=== PATIENT | female | born 1985 | race African-American/Black ===

== ENCOUNTER 2019-01-23 07:23 | Emergency (ER) | payer MEDICAID, OTHER ==
[~2019-01-23] VITALS: Ht 157.5 cm; Wt 87.2 kg
[2019-01-23 07:32] VITALS: BP 113/79
== END 2019-01-23 10:27 | disposition home or self-care (01) ==
LOC: ER 07:23
DX: J02.9 Acute pharyngitis, unspecified (principal); F17.210 Nicotine dependence, cigarettes, uncomplicated; Z88.6 Allergy status to analgesic agent
CPT/HCPCS: 81025

== ENCOUNTER 2019-06-28 22:00 | Inpatient (IN) | payer MEDICAID ==
[~2019-06-28] VITALS: Ht 157.5 cm; Wt 86.1 kg
[2019-06-28 22:53] LABS: Basophils # (auto) 0 uL; Eosinophils # (auto) 0 uL; Lymphocytes # (auto) 0.3 uL; Mean Corpuscular Hemoglobin 24.8 pg (28.0-32.0); Monocytes # (auto) 0.5 uL; White Blood Cell 2.8 10^3/uL (4.4-10.8)
[2019-06-28 22:55] LABS: Basophils % (auto) 0.4 % (0.0-2.0); Eosinophils % (auto) 0.8 % (0.0-7.0); Hematocrit 20.9 % (36.0-46.0); Lymphocytes % (auto) 9.6 % (10.0-50.0); Mean Corpuscular Hgb Conc. 31.8 g/dL (32.0-36.0); Neutrophils % (auto) 72.2 % (37.0-80.0); Platelet Count (auto) 113 10^3/uL (140-450); Red Blood Cells 2.68 10^6/uL (4.0-5.20)
[2019-06-28 23:05] LABS: Hemoglobin 6.6 g/dL (12.2-16.2)
[2019-06-28 23:06] LABS: INR 0.96 (0.9-1.15); Partial Thromboplastin Time 28.7 sec (23.64-32.05)
[2019-06-28 23:13] LABS: Albumin 2.7 g/dL (3.4-5.0); Calcium 7.6 mg/dL (8.5-10.1)
[2019-06-28 23:18] LABS: Urine Bacteria NONE SEEN /hpf (None Seen); Urine Blood Negative /uL (Negative); Urine Specific Gravity 1.002 (1.001-1.035); Urine WBC 1 /hpf (0 - 5)
[2019-06-28 23:18] LABS: Bilirubin, Total 0.7 mg/dL (0.2-1.0)
[2019-06-28 23:19] LABS: Potassium 2.9 mmol/L (3.5-5.1)
[2019-06-28 23:40] LABS: BUN/Creatinine Ratio 3.1
[2019-06-28] MEDS ORDERED: MORPHINE SULFATE 4 MG/ML SYR/VIAL IV ONE (23:45)
[2019-06-28] MEDS ORDERED: ONDANSETRON HCL 4 MG/2 ML VIAL IV ONE (23:45)
[2019-06-29] VITALS (15 sets, daily range): BP systolic 98–114; BP diastolic 53–75
[2019-06-29] MEDS ORDERED: POTASSIUM CHL 20MEQ/100ML 100 ML IV ONE (00:45)
[2019-06-29] MEDS ORDERED: ALBUMIN 5% 250 ML IV ONE (05:00)
[2019-06-29] MEDS ORDERED: ACETAMINOPHEN 500 MG TAB PO PRN (05:30)
[2019-06-29 06:31] LABS: Hematocrit 20.3 % (36.0-46.0); Mean Corpuscular Hemoglobin 24.7 pg (28.0-32.0)
[2019-06-29] MEDS: traMADol HCL 50 MG TAB PO PRN ×2 (06:32→23:08)
[2019-06-29 06:37] LABS: Mean Corpuscular Hgb Conc. 31.6 g/dL (32.0-36.0); Mean Corpuscular Volume 78.1 fL (80.0-100.0); Platelet Count (auto) 97 10^3/uL (140-450)
[2019-06-29 06:50] LABS: BUN/Creatinine Ratio 3.3; Calcium 7.1 mg/dL (8.5-10.1); Potassium 3.6 mmol/L (3.5-5.1)
[2019-06-29 06:51] LABS: % Iron Saturation 12.5 % (15-50)
[2019-06-29 06:57] LABS: Red Cell Distribution Width 20.8 % (11.8-14.3)
[2019-06-29 07:06] LABS: White Blood Cell 1.9 10^3/uL (4.4-10.8)
[2019-06-29 07:07] LABS: Hemoglobin 6.4 g/dL (12.2-16.2)
[2019-06-29 07:08] LABS: Basophils % (manual) 0 (0.0-2.0); Blast Cells 0; Eosinophils % (manual) 0 (0-7); Metamyelocytes % 0; Myelocytes % 0; Promyelocytes % 0; Reactive Lymphocytes 0
[2019-06-29 08:17] LABS: Band Neutrophils % (manual) 1; Lymphocytes % (manual) 11 (10.0-50.0)
[2019-06-29 08:18] LABS: Monocytes % (manual) 13 (0-12)
--- NOTE | 2019-06-29 10:11 | NUR ---
RECEIVED PATIENT ON THE FLOOR. PATIENT BLOOD TRANSFUSION JUST FINISHED. VS CHARTED AND WNL. PATIENT SHOWS NO S/S OF DISTRESS,SOB, OR PAIN. PATIENT IS ON ROOM AIR [id number] PATIENT IS ALERT AND ORIENTED. ORIENTED PATIENT TO ROOM, UNIT,POLICIES, AND PROCEDURES. ALL QUESTIONS AND CONCERNS ADDRESSED. BED IS IN LOWEST POSITION, SIDE RAILS UPX2, AND CALL LIGHT WITHIN REACH. WILL CONTINUE TO MONITOR Q1 HOUR AND PRN.
[2019-06-29] MEDS: MORPHINE SULFATE 4 MG/ML SYR/VIAL IV PRN ×2 (11:16→19:57)
[2019-06-29] MEDS: D5W/SOD CHLO 0.9% 1,000 ML IV SCH ×2 (11:16→19:05)
[2019-06-29] MEDS: FAMOTIDINE 20 MG TAB PO SCH (11:16)
[2019-06-29] MEDS: FOLIC ACID 1 MG TAB PO SCH (11:17)
[2019-06-29] MEDS: HYDROXYUREA 500 MG CAP PO SCH (11:17)
[2019-06-29] MEDS: ONDANSETRON HCL 4 MG/2 ML VIAL IV PRN (11:17)
--- NOTE | 2019-06-30 00:30 | NUR ---
PT TRANSFERRED TO ROOM 280 A BECAUSE SHE STATES HER ROOMMATE IS YELLING TOO MUCH,AND SHE CANT TAKE BEING IN THE SAME ROOM WITH HER ANYMORE.PT HAD BEEN WEARING EARPLUGS BECAUSE SHE STATES THE YELLING HAD GONE ON "ALL DAY". PT IS NOW HAPPY AND STATES SHE WILL FINALLY BE ABLE TO SLEEP.
[2019-06-30] MEDS: MORPHINE SULFATE 4 MG/ML SYR/VIAL IV PRN ×2 (01:02→05:27)
[2019-06-30 05:28] VITALS: BP 109/66
[2019-06-30 05:34] LABS: Basophils # (auto) 0 uL; Eosinophils # (auto) 0 uL; Lymphocytes # (auto) 0.2 uL; Monocytes # (auto) 0.2 uL
[2019-06-30 05:38] LABS: Basophils % (auto) 1.2 % (0.0-2.0); Eosinophils % (auto) 2.9 % (0.0-7.0); Hematocrit 29.6 % (36.0-46.0); Hemoglobin 9.5 g/dL (12.2-16.2); Lymphocytes % (auto) 11.2 % (10.0-50.0); Mean Corpuscular Hemoglobin 26.5 pg (28.0-32.0); Mean Corpuscular Hgb Conc. 32.2 g/dL (32.0-36.0); Mean Corpuscular Volume 82.2 fL (80.0-100.0); Neutrophils # (auto) 1.1 uL; Neutrophils % (auto) 70.7 % (37.0-80.0); Nucleated Red Blood Cells % 1.8 %; Platelet Count (auto) 86 10^3/uL (140-450)
[2019-06-30 05:59] LABS: Calcium 7.7 mg/dL (8.5-10.1); Potassium 3.7 mmol/L (3.5-5.1)
[2019-06-30 06:02] LABS: BUN/Creatinine Ratio 2.1
[2019-06-30 06:07] LABS: Red Cell Distribution Width 20.8 % (11.8-14.3)
[2019-06-30 06:08] LABS: White Blood Cell 1.6 10^3/uL (4.4-10.8)
--- NOTE | 2019-06-30 06:16 | NUR ---
HOSPITALIST PAGED REGARDING CRITICAL LAB VALUE OF 1.6 WBC.
--- NOTE | 2019-06-30 06:26 | NUR ---
AWAITING CALL BACK-WILL PLACE REVERSE ISOLATION GOWNS AND GLOVES ON DOOR FOR PATIENT'S PROTECTION.
[2019-06-30] MEDS ORDERED: FILGRASTIM(TBO) 480 MCG/0.8 ML SYRG SC ONE (07:00)
--- NOTE | 2019-06-30 08:09 | NUR ---
OPENING SHIFT NOTE: PATIENT AWAKE IN BED. UPDATED ON PLAN OF CARE, ADDRESSED ALL CONCERNS. REVERSE ISOLATION PRECAUTION MEASURES TAKEN. BED IN LOWEST LOCKED POSITION. CALL LIGHT WITHIN REACH. PATIENT VERBALIZED UNDERSTANDING ON HOW TO USE CALL LIGHT, WILL CONTINUE TO MONITOR.
[2019-06-30 08:47] LABS: Hepatitis B Surface Antibody Negative
[2019-06-30 09:12] VITALS: BP 109/69
[2019-06-30 09:24] LABS: Hepatitis A Total Antibody Positive
[2019-06-30 09:32] LABS: Hepatitis B Core Total AB Negative; Hepatitis B Surface Antigen Negative (Negative); Hepatitis C Antibody Negative (Negative)
[2019-06-30] MEDS: D5W/SOD CHLO 0.9% 1,000 ML IV SCH ×2 (10:54→21:20)
[2019-06-30] MEDS: HYDROXYUREA 500 MG CAP PO SCH (10:54)
[2019-06-30] MEDS: FAMOTIDINE 20 MG TAB PO SCH (10:54)
[2019-06-30] MEDS: FOLIC ACID 1 MG TAB PO SCH (10:54)
[2019-06-30 12:30] VITALS: BP 107/73
[2019-06-30] MEDS: DOCUSATE SOD 100 MG CAP PO SCH ×2 (14:11→21:20)
[2019-06-30] MEDS ORDERED: diphenhdrAMINE HCL 25 MG CAP PO PRN (14:30)
--- NOTE | 2019-06-30 15:20 | NUR ---
PATIENT TAKEN TO RADIOLOGY VIA WHEELCHAIR.
[2019-06-30] MEDS: ONDANSETRON HCL 4 MG/2 ML VIAL IV PRN (15:29)
--- NOTE | 2019-06-30 16:00 | NUR ---
PATIENT BACK IN ROOM. IV RE-STARTED, NO COMPLAINTS OF PAIN, FAMILY AT BEDSIDE.
[2019-06-30 17:28] VITALS: BP 103/72
--- NOTE | 2019-06-30 18:28 | NUR ---
CLOSING SHIFT NOTE: PATIENT RESTING IN BED. NO SIGNS OF DISTRESS NOTED. FAMILY AT BEDSIDE. FALL PRECAUTIONS IN PLACE. CALL LIGHT WITHIN REACH, BED IN LOWEST LOCKED POSITION. WILL ENDORSE CARE TO NOC RN.
--- NOTE | 2019-06-30 19:15 | NUR ---
CARE ENDORSED TO NIDIA WATSON.
--- NOTE | 2019-06-30 19:40 | NUR ---
Opening Shift Note Assumed care of patient, awake and alert. No S/S of distress/SOB or pain. Reverse isolation precautions in place. Bed locked in lowest position, side rails upx2, call light within reach. Instructed on POC and to call for assist PRN, will continue to monitor for changes Q1hr and PRN.
[2019-06-30 22:23] VITALS: BP 121/81
[2019-07-01 05:14] VITALS: BP 118/71
[2019-07-01 07:14] LABS: White Blood Cell 18.4 10^3/uL (4.4-10.8)
[2019-07-01 07:16] LABS: Hematocrit 31.6 % (36.0-46.0); Hemoglobin 10.3 g/dL (12.2-16.2); Mean Corpuscular Hemoglobin 26.6 pg (28.0-32.0); Mean Corpuscular Hgb Conc. 32.7 g/dL (32.0-36.0); Mean Corpuscular Volume 81.4 fL (80.0-100.0); Platelet Count (auto) 79 10^3/uL (140-450); Red Blood Cells 3.88 10^6/uL (4.0-5.20)
[2019-07-01 07:28] LABS: BUN/Creatinine Ratio 3.4; Potassium 3.7 mmol/L (3.5-5.1)
[2019-07-01 07:53] LABS: Red Cell Distribution Width 21.3 % (11.8-14.3)
[2019-07-01 07:54] LABS: Basophils % (manual) 0 (0.0-2.0); Blast Cells 0; Eosinophils % (manual) 0 (0-7); Metamyelocytes % 0; Monocytes % (manual) 0 (0-12); Myelocytes % 0; Promyelocytes % 0; Reactive Lymphocytes 0
[2019-07-01 07:56] LABS: Band Neutrophils % (manual) 13; Lymphocytes % (manual) 2 (10.0-50.0)
[2019-07-01 09:34] VITALS: BP 109/74
[2019-07-01] MEDS: DOCUSATE SOD 100 MG CAP PO SCH ×2 (10:00→22:00)
[2019-07-01] MEDS: HYDROXYUREA 500 MG CAP PO SCH (10:22)
[2019-07-01] MEDS: FOLIC ACID 1 MG TAB PO SCH (10:23)
[2019-07-01] MEDS: FAMOTIDINE 20 MG TAB PO SCH (10:23)
[2019-07-01] MEDS: D5W/SOD CHLO 0.9% 1,000 ML IV SCH ×2 (11:05→23:42)
--- NOTE | 2019-07-01 11:15 | NUR ---
DR. KHOURY IN TO SEE PT. PT IN AGREEMENT WITH PLAN OF CARE.
[2019-07-01 13:00] VITALS: BP 112/82
--- NOTE | 2019-07-01 14:25 | NUR ---
PER DR. KHOURY, PT NOT BEING DISCHARGED TODAY. INFORMATION RELAYED TO PT AND MOTHER. PT IS UPSET AT DECISION, AND REPORTS SHE WILL LEAVE AMA ONCE HER SISTER ARRIVES. SPOKE TO PT AND EXPLAINED REASON FOR DECISION. PT REPEATS SHE WILL LEAVE ONCE HER SISTER ARRIVES.
--- NOTE | 2019-07-01 15:20 | NUR ---
SPOKE TO PT AND MOTHER ONCE MORE ABOUT AMA DECISION. PT STATES THAT SHE WILL STAY, MOTHER STATES PT WILL STAY, PT IS MORE RECEPTIVE OF CARE. IN AGREEMENT WITH PLAN.
[2019-07-01] MEDS: traMADol HCL 50 MG TAB PO PRN ×2 (17:39→22:16)
--- NOTE | 2019-07-01 19:00 | NUR ---
OPENING NOTE Received report from day shift RN. Patient is A&O X's 4 with no s/s of distress and reports no pain at this moment. Educated patient on POC and to use call light when in need of assistance. Patient verbalized understanding. Bed is in lowest/locked position with side rails up X's 2 and call light is within reach of patient. Will continue care and round hourly/PRN.
[2019-07-01 21:58] VITALS: BP 126/87
[2019-07-02 05:32] VITALS: BP 119/77
[2019-07-02 05:45] LABS: Basophils # (auto) 0 uL; Basophils % (auto) 0.1 % (0.0-2.0); Hemoglobin 9.7 g/dL (12.2-16.2); Lymphocytes # (auto) 0.2 uL; Neutrophils # (auto) 11.7 uL
[2019-07-02 05:51] LABS: Eosinophils # (auto) 0.1 uL; Eosinophils % (auto) 0.5 % (0.0-7.0); Hematocrit 29.8 % (36.0-46.0); Mean Corpuscular Hemoglobin 26.7 pg (28.0-32.0); Mean Corpuscular Hgb Conc. 32.7 g/dL (32.0-36.0); Mean Corpuscular Volume 81.5 fL (80.0-100.0); Monocytes # (auto) 0.3 uL; Monocytes % (auto) 2.5 % (0.0-12.0); Neutrophils % (auto) 94.9 % (37.0-80.0); Nucleated Red Blood Cells % 0.5 %; Platelet Count (auto) 86 10^3/uL (140-450); Red Blood Cells 3.66 10^6/uL (4.0-5.20); White Blood Cell 12.3 10^3/uL (4.4-10.8)
[2019-07-02 06:04] LABS: Red Cell Distribution Width 21.3 % (11.8-14.3)
[2019-07-02 06:11] LABS: Potassium 3.7 mmol/L (3.5-5.1)
[2019-07-02 06:16] LABS: Albumin 2.7 g/dL (3.4-5.0); BUN/Creatinine Ratio 7.4
[2019-07-02 06:19] LABS: Bilirubin, Total 0.4 mg/dL (0.2-1.0); Total Protein 5.9 g/dL (6.4-8.2)
--- NOTE | 2019-07-02 07:10 | NUR ---
Opening Shift Note Assumed care of patient, awake and alert. No S/S of distress/SOB or pain. Instructed on POC and to call for assist PRN, will continue to monitor for changes Q1hr and PRN.
[2019-07-02] MEDS: FAMOTIDINE 20 MG TAB PO SCH (08:45)
[2019-07-02] MEDS: HYDROXYUREA 500 MG CAP PO SCH (08:45)
[2019-07-02] MEDS: FOLIC ACID 1 MG TAB PO SCH (08:45)
[2019-07-02] MEDS: DOCUSATE SOD 100 MG CAP PO SCH (08:45)
[2019-07-02] MEDS: traMADol HCL 50 MG TAB PO PRN (08:46)
[2019-07-02 09:00] VITALS: BP 103/66
[2019-07-02 12:00] VITALS: BP 139/78
[2019-07-02] MEDS: D5W/SOD CHLO 0.9% 1,000 ML IV SCH (14:00)
== END 2019-07-02 15:52 | disposition home or self-care (01) | DRG 662 ==
LOC: EDBD 22:00 → ER 22:00 → TELE 22:01 → TELE-WESTW 06-29 09:52
PROVIDERS: ADMIT Nurse Practitioner Family; ATTEND Internal Medicine
PROC: 30233N1 Transfusion of Nonautologous Red Blood Cells into Peripheral Vein, Percutaneous Approach (ICD-10-PCS; principal; 2019-06-29)
DX: D57.00 Hb-SS disease with crisis, unspecified (principal); D61.818 Other pancytopenia; E11.9 Type 2 diabetes mellitus without complications; E87.6 Hypokalemia; J45.909 Unspecified asthma, uncomplicated; F17.210 Nicotine dependence, cigarettes, uncomplicated; Z88.5 Allergy status to narcotic agent
CPT/HCPCS: 36415; 36430; 71046; 80048; 80053; 81001; 81025; 83021; 83540; 83550; 83615; 84436; 84443; 85007; 85025; 85027; 85045; 85610; 85660; 85730; 86038; 86200; 86704; 86706; 86708; 86803; 86850; 86880; 86900; 86901; 86922; 87040; 87340; 96365; 96367; G0378; J1447; J2405; J3480; J7042